=== PATIENT | female | born 1955 | race Caucasian/White ===

== ENCOUNTER 2024-11-03 14:23 | Outpatient (CLI) | payer BC, SELFPAY | END 2024-11-03 14:24 | disposition home or self-care (01) | LOC: NFLDREF 11-08 14:45 | PROVIDERS: Visit Provider Physician Assistant | DX: N39.0 Urinary tract infection, site not specified (principal); B96.1 Klebsiella pneumoniae [K. pneumoniae] as the cause of diseases classified elsewhere | CPT/HCPCS: 87086 ==